=== PATIENT | female | born 1985 | race African-American/Black ===

== ENCOUNTER 2017-08-12 12:55 | Emergency (ER) | payer MEDICAID, OTHER ==
[~2017-08-12] VITALS: Ht 165.1 cm; Wt 168.0 kg
[~2017-08-12 12:55] MED LIST: PRED20 PO; PRIN20TA2 PO; VENTAER INH
[2017-08-12 13:06] VITALS: BP 173/84; PULSE 78; RESP 16; TEMP 98.3; O2SAT 99
[2017-08-12] MEDS ORDERED: MAGICADU2 SWISH-SPIT (13:11)
[2017-08-12] MEDS ORDERED: PENI500T PO (13:11)
[2017-08-12] MEDS ORDERED: IBUP1TAB7 PO (13:13)
--- NOTE | 2017-08-12 13:15 | PD ---
HPI Chief Complaint: Oral / Dental Pain or Problem Time Seen by Provider: 13:08 Travel History International Travel<30 days: No Contact w/Intl Traveler<30days: No Traveled to known affect area: No History of Present Illness HPI 31-year-old female presents for evaluation of dental pain. Symptoms started 2 weeks ago. Pain is throbbing, constant, localized to the right mandibular molars and premolars. Pain is unrelieved with [id number] ibuprofen and Tylenol. Denies fevers, chills. No other complaints. PFSH Past Medical History Asthma: Yes Depression: Yes Cardiovascular Problems: Yes (HTN) Diminished Hearing: No Hypertension: Yes ?: Not Menopausal: No : 2 Para: 2 Past Surgical History Section: Yes (x2) Social History Alcohol Use: Yes (SOCIALLY) Tobacco Use: Yes (1/2 PPD) Substance Use: No Allergies-Medications (Allergen,Severity, Reaction): Coded Allergies: No Known Allergies (Verified Adverse Reaction, Unknown, 08/12/17) Reported Meds & Prescriptions Reported Meds & Active Scripts Active Ibuprofen 800 Mg Tab 800 Mg PO Q6HR PRN Magic Mouthwash Adult Liq (Multi-Ingredient Mouthwash/Gargle) 120 Ml Susp 10 Ml SWISH-SPIT ACHS Each 5mL contains: Nystatin 200,000units, Diphenhydramine 4.25mg, Viscous Lidocaine 10mg, Cornejo syrup 0.8 mL Penicillin V Potassium 500 Mg Tab 500 Mg PO Q8H 10 Days Ventolin Hfa (Albuterol Sulfate) 18 Gm Aero 2 Puff INH Q4H PRN * SHAKE WELL BEFORE USE * Deltasone (Prednisone) 20 Mg Tab 20 Mg PO BID Reported Prinivil (Lisinopril) 20 Mg Tab 20 Mg PO DAILY Review of Systems Except as stated in HPI: all other systems reviewed are Neg Physical Exam Narrative Well-nourished female in no acute distress [ SKIN: Warm and dry. HEAD: Atraumatic. Normocephalic. EYES: Pupils equal and round. No scleral icterus. No injection or drainage. ENT: No nasal bleeding or discharge. Mucous membranes pink and moist. Poor dentition throughout. Tender to palpation of the right mandibular second premolar and first. NECK: Trachea midline. No JVD. No lymphadenopathy CARDIOVASCULAR: Regular rate and rhythm. No murmur appreciated. RESPIRATORY: No accessory muscle use. Clear to auscultation. Breath sounds equal bilaterally. Data Data Last Documented VS Vital Signs Date Time Temp Pulse Resp B/P (MAP) Pulse Ox O2 Delivery O2 Flow Rate FiO2 08/12/17 13:06 98.3 78 16 173/84 (113) 99 Orders Orders Ed Discharge Order (08/12/17 13:11) MDM Medical Decision Making Medical Screen Exam Complete: Yes Emergency Medical Condition: Yes Medical Record Reviewed: Yes Differential Diagnosis Dental caries, pulpitis, pericoronitis, periodontal abscess Narrative Course The patient is being discharged with nonnarcotic analgesics and penicillin. Diagnosis Primary Impression: Dental caries Additional Instructions: Medication as prescribed. Follow up with a dentist for definitive therapy. Return for any emergent medical conditions. Med/Other Pt SpecificInfo: Prescription(s) given Scripts Ibuprofen (Ibuprofen) 800 Mg Tab 800 MG PO Q6HR Y for PAIN, #40 TAB 0 Refills Prov: Willy Jiménez MD 08/12/17 Gxzywxaa-Wqxiyolhkjjfpyb-Uelsealmz Liq (Magic Mouthwash Adult Liq) 120 Ml Susp 10 ML SWISH-SPIT ACHS for Mouth sores, #120 ML 1 Refill Each 5mL contains: Nystatin 200,000units, Diphenhydramine 4.25mg, Viscous Lidocaine 10mg, Cornejo syrup 0.8 mL Prov: Willy Jiménez MD 08/12/17 Penicillin V Potassium (Penicillin V Potassium) 500 Mg Tab 500 MG PO Q8H for Infection for 10 Days, #30 TAB 0 Refills Prov: Willy Jiménez MD 08/12/17 Disposition: 01 DISCHARGE HOME Condition: Stable William Harris Aug 12, 2017 13:15
== END 2017-08-12 13:28 | disposition home or self-care (01) ==
LOC: PHEFT 12:55
DX: K02.9 Dental caries, unspecified (principal); J45.909 Unspecified asthma, uncomplicated; I10 Essential (primary) hypertension; F17.210 Nicotine dependence, cigarettes, uncomplicated
CPT/HCPCS: 99284

== ENCOUNTER 2017-09-12 21:30 | Emergency (ER) | payer OTHER ==
[~2017-09-12] VITALS: Ht 165.1 cm; Wt 164.1 kg
[~2017-09-12 21:30] MED LIST changes: +IBUP1TAB7 PO; +MAGICADU2 SWISH-SPIT; +PENI500T PO
[2017-09-12 21:32] VITALS: BP 196/111; PULSE 100; RESP 18; TEMP 98.4; O2SAT 100
[2017-09-12] MEDS ORDERED: DOXY100C PO (22:14)
[2017-09-12] MEDS ORDERED: METR-1 PO (22:14)
--- NOTE | 2017-09-12 22:14 | PD ---
HPI . Pelvic pain Chief Complaint: Pelvic pain Time Seen by Provider: 21:46 Travel History International Travel<30 days: No Contact w/Intl Traveler<30days: No History of Present Illness HPI This patient presents with a 2 day history of pelvic pain associated with vaginal bleeding. Her last normal menstrual period was about 3 weeks ago. Denies any vaginal discharge or dyspareunia. She denies any other symptoms such as nausea, vomiting, fever or urinary tract symptoms. Her pain is rated 7/ 10 and has no modifying factors. PFSH Past Medical History Asthma: Yes Depression: Yes Cardiovascular Problems: Yes (HTN) Diminished Hearing: No Hypertension: Yes Menopausal: No : 2 Para: 2 Past Surgical History Section: Yes (x2) Social History Alcohol Use: Yes (SOCIALLY) Tobacco Use: Yes (1/2 PPD) Substance Use: No Allergies-Medications (Allergen,Severity, Reaction): Coded Allergies: No Known Allergies (Verified Adverse Reaction, Unknown, 08/12/17) Reported Meds & Prescriptions Reported Meds & Active Scripts Active Flagyl (Metronidazole) 500 Mg Tab 500 Mg PO BID 7 Days Doxycycline Hyclate 100 Mg Cap 100 Mg PO BID Ibuprofen 800 Mg Tab 800 Mg PO Q6HR PRN Magic Mouthwash Adult Liq (Multi-Ingredient Mouthwash/Gargle) 120 Ml Susp 10 Ml SWISH-SPIT ACHS Each 5mL contains: Nystatin 200,000units, Diphenhydramine 4.25mg, Viscous Lidocaine 10mg, Cornejo syrup 0.8 mL Penicillin V Potassium 500 Mg Tab 500 Mg PO Q8H 10 Days Ventolin Hfa (Albuterol Sulfate) 18 Gm Aero 2 Puff INH Q4H PRN * SHAKE WELL BEFORE USE * Deltasone (Prednisone) 20 Mg Tab 20 Mg PO BID Reported Prinivil (Lisinopril) 20 Mg Tab 20 Mg PO DAILY Review of Systems Except as stated in HPI: all other systems reviewed are Neg General / Constitutional: No: Fever, Chills Gastrointestinal: No: Nausea, Vomiting, Diarrhea Genitourinary: Positive: Pelvic Pain, Vaginal Bleeding, No: Urgency, Frequency , Dysuria Physical Exam Narrative GENERAL: Awake and alert and in no acute distress. Markedly obese. SKIN: Warm and dry. HEAD: Normocephalic/atraumatic. EYES: Pupils are equal. Extraocular movements are intact. NECK: Normal range of motion. Distally RESPIRATORY: Nonlabored respirations. Bili : Exam is technically difficult because of her size. There is no blood in the vaginal vault. There is positive cervical motion tenderness with bilateral adnexal tenderness. MUSCULOSKELETAL: Atraumatic. NEUROLOGICAL: Nonfocal. PSYCHIATRIC: Appropriate mood and affect. Data Data Last Documented VS Vital Signs Date Time Temp Pulse Resp B/P (MAP) Pulse Ox O2 Delivery O2 Flow Rate FiO2 09/12/17 21:32 98.4 100 18 196/111 (139) 100 Orders Orders Ed Urine Pregnancytest Poc (09/12/17 21:46) Gc And Chlamydia Pcr (09/12/17 21:53) Wet Prep Profile (09/12/17 21:53) Ceftriaxone Inj (Rocephin Inj) (09/12/17 22:15) Lidocaine Pf 1% Inj (Xylocaine-Mpf 1% In (09/12/17 22:45) Labs Laboratory Tests Test 09/12/17 21:34 [facility] Medical Decision Making Medical Screen Exam Complete: Yes Emergency Medical Condition: Yes Differential Diagnosis Differential diagnosis of pelvic pain includes but is not limited to UTI, PID, ectopic , spontaneous AB, constipation, viral illness Narrative Course This patient presents with the chief complaint of pelvic pain and vaginal bleeding. Her complaint of vaginal bleeding is not supported by her physical exam. She does have cervical motion tenderness. She'll be treated for PID. HCG is negative. Diagnosis Primary Impression: Pelvic inflammatory disease Patient Instructions: Pelvic Inflammatory Disease (DC) Med/Other Pt SpecificInfo: Prescription(s) given Scripts Metronidazole (Flagyl) 500 Mg Tab 500 MG PO BID for Infection for 7 Days, #14 TAB 0 Refills Prov: Lorelei Gomes MD 09/12/17 Doxycycline Hyclate (Doxycycline Hyclate) 100 Mg Cap 100 MG PO BID for Infection, #20 CAP 0 Refills Prov: Lorelei Gomes MD 09/12/17 Disposition: 01 DISCHARGE HOME Condition: Stable Lorelei Gomes MD Sep 12, 2017 22:14
[2017-09-12] MEDS ORDERED: LIDOCAINE HCL 1% 50 ML VIAL XX ONE (22:15)
[2017-09-12] MEDS ORDERED: cefTRIAXone 250 MG VIAL IM ONE (22:15)
[2017-09-12] MEDS ORDERED: LIDOCAINE HCL 1% PF 2 ML VIAL OTHER ONE (22:45)
[2017-09-12] MEDS ORDERED: IBUPROFEN 800 MG TAB PO ONE (23:00)
== END 2017-09-12 23:05 | disposition home or self-care (01) ==
LOC: PHED 21:30
DX: N73.9 Female pelvic inflammatory disease, unspecified (principal); I10 Essential (primary) hypertension; F17.200 Nicotine dependence, unspecified, uncomplicated
CPT/HCPCS: 84703; 87210; 87491; 87591; 96372; 99284; J0696

== ENCOUNTER 2017-09-20 14:51 | Emergency (ER) | payer OTHER ==
[~2017-09-20] VITALS: Ht 165.1 cm; Wt 170.0 kg
[~2017-09-20 14:51] MED LIST changes: +DOXY100C PO; +METR-1 PO
[2017-09-20 14:54] VITALS: BP 183/108; PULSE 98; RESP 16; TEMP 98.6; O2SAT 100
--- NOTE | 2017-09-20 16:12 | PD ---
HPI Chief Complaint: Pain: Acute or Chronic Time Seen by Provider: 16:05 Travel History International Travel<30 days: No Contact w/Intl Traveler<30days: No Traveled to known affect area: No History of Present Illness HPI 31-year-old female presents to emergency department for evaluation of left breast pain that occurs every month approximately the week before her menstrual cycle. Patient states that she fell she should come and get it evaluated to see what was causing it. She points to the mid left breast and tells me "when she pushes on it right there, it hurts". She denies any nipple discharge. No erythema. No trauma. No chest pain or tightness. No difficulty breathing. No fever or chills. She has no other symptoms to report. PFSH Past Medical History Asthma: Yes Depression: Yes Cardiovascular Problems: Yes (HTN) Diminished Hearing: No Hypertension: Yes Influenza Vaccination: No ?: Not Menopausal: No : 2 Para: 2 Past Surgical History Surgical History: No Previous Surgery Section: Yes (x2) Social History Alcohol Use: Yes (SOCIALLY) Tobacco Use: Yes (1/2 PPD) Substance Use: No Allergies-Medications (Allergen,Severity, Reaction): Coded Allergies: No Known Allergies (Verified Adverse Reaction, Unknown, 09/20/17) Reported Meds & Prescriptions Reported Meds & Active Scripts Active Flagyl (Metronidazole) 500 Mg Tab 500 Mg PO BID 7 Days Doxycycline Hyclate 100 Mg Cap 100 Mg PO BID Review of Systems Except as stated in HPI: all other systems reviewed are Neg Physical Exam Narrative GENERAL: Obese female patient, ambulatory and in no acute distress. SKIN: Focused skin assessment warm/dry. Erythema or edema. HEAD: Atraumatic. Normocephalic. EYES: Pupils equal and round. No scleral icterus. No injection or drainage. ENT: No nasal bleeding or discharge. Mucous membranes pink and moist. NECK: Trachea midline. No JVD. CARDIOVASCULAR: Regular rate and rhythm. No murmur appreciated. RESPIRATORY: No accessory muscle use. Clear to auscultation. Breath sounds equal bilaterally. BREASTS: Symmetric. No nipple discharge or drainage. No erythema or edema. Tenderness elicited palpation of the left breast at approximately 11:00. There are no palpable masses. GASTROINTESTINAL: Abdomen soft, non-tender, nondistended. Hepatic and splenic margins not palpable. MUSCULOSKELETAL: No obvious deformities. No clubbing. No cyanosis. No edema. NEUROLOGICAL: Awake and alert. No obvious cranial nerve deficits. Motor grossly within normal limits. Normal speech. PSYCHIATRIC: Appropriate mood and affect; insight and judgment normal. Data Data Last Documented VS Vital Signs Date Time Temp Pulse Resp B/P (MAP) Pulse Ox O2 Delivery O2 Flow Rate FiO2 09/20/17 16:30 09/20/17 14:54 98.6 98 16 100 Room Air Orders Orders Electrocardiogram (09/20/17 ) Ed Discharge Order (09/20/17 16:22) MDM Medical Decision Making Medical Screen Exam Complete: Yes Emergency Medical Condition: Yes Medical Record Reviewed: Yes Differential Diagnosis Premenstrual syndrome versus fibrocystic breast versus breast mass versus chest wall pain Narrative Course 31-year-old female presents to emergency department for evaluation of left breast tenderness/pain that occurs every month for the last 4-6 months prior to her menstrual cycle. Patient appears well. I can reproduce the pain upon palpation of the left breast at 11:00. There is no nipple discharge or drainage. I have encouraged patient to follow-up with an [employer] and suggested outpatient mammography for further evaluation but offered reassurance that this is likely related to her menstrual cycle. I discussed the patient my attending physician who agrees that further workup is not warranted at this time. Patient agrees to return immediately with any acute worsening symptoms. Diagnosis Primary Impression: Breast tenderness in female Referrals: Primary Care Physician Patient Instructions: Breast Self Exam for Women (ED), General Instructions Additional Instructions: Follow-up with your primary care provider Outpatient mammogram may be warranted for further evaluation of your breast tenderness Ibuprofen as directed on the package as needed for pain Return immediately to the emergency department with any acute worsening of symptoms Med/Other Pt SpecificInfo: No Change to Meds Disposition: 01 DISCHARGE HOME Condition: Stable Jane Bell HALLE Sep 20, 2017 16:12
--- NOTE | 2017-09-20 17:05 | EKG ---
Date Performed: 09/20/2017 Time Performed: 15:11:16 PTAGE: 31 years EKG: Sinus rhythm POSSIBLE LEFT ATRIAL ENLARGEMENT NONSPECIFIC T-WAVE ABNORMALITY BORDERLINE ECG NO PREVIOUS TRACING DOCTOR: Gonzalo Paulino Interpretating Date/Time 09/20/2017 17:03:29
== END 2017-09-20 16:50 | disposition home or self-care (01) ==
LOC: NEPE 14:51
DX: N64.4 Mastodynia (principal); F17.200 Nicotine dependence, unspecified, uncomplicated; I10 Essential (primary) hypertension
CPT/HCPCS: 93005; 99283